=== PATIENT | female | born 1980 | race Caucasian/White ===

== ENCOUNTER 2023-12-31 11:08 | Emergency (ER) | payer OTHER ==
[~2023-12-31] VITALS: Ht 149.9 cm; Wt 71.2 kg
[2023-12-31 11:12] VITALS: BP 144/96; PULSE 69; RESP 16; TEMP 97.4; O2SAT 100
[2023-12-31 11:45] VITALS: O2SAT 100
[2023-12-31 12:09] LABS: APPEARANCE,URINE CLEAR (CLEAR); BILIRUBIN,URINE NEGATIVE (NEGATIVE); BLOOD, URINE TRACE-I (NEGATIVE); COLOR,URINE YELLOW (YELLOW); LEUKOCYTE ESTERASE ,URINE NEGATIVE (NEGATIVE); NITRITE, URINE NEGATIVE (NEGATIVE); PROTEIN,URINE NEGATIVE (NEGATIVE); UGLUCOSE 3+ (NEGATIVE); UROBILINOGEN,URINE 0.2 EU/dL (0.2 - 1)
[2023-12-31 12:22] LABS: BACTERIA,URINE OCCASSIONAL /HPF (None Seen); RBC,URINE 0-5 /HPF (0-5); SQUAMOUS EPITHELIAL CELL,UR 0-3 (FEW) /LPF (0-3 (FEW)); WBC,URINE 0-5 /HPF (0-5)
[2023-12-31 14:07] VITALS: O2SAT 100
[2023-12-31] MEDS ORDERED: [UNRECOGNIZED DRUG - CODE] TOP (15:05)
[2023-12-31 15:14] VITALS: BP 125/82; PULSE 75; RESP 12; TEMP 97.9; O2SAT 100
== END 2023-12-31 15:14 | disposition home or self-care (01) ==
LOC: MED 11:08
DX: B37.31 Acute candidiasis of vulva and vagina (principal); Z79.899 Other long term (current) drug therapy; Z98.890 Other specified postprocedural states
CPT/HCPCS: 81001; 81025; 82948; 87210; 87491; 99285